=== PATIENT | female | born 1965 | race Caucasian/White ===

== ENCOUNTER 2021-10-02 16:55 | Observation (INO) ==
[2021-10-02] MEDS ORDERED: 0.9 % Sodium Chloride 1,000 ML IV ONE (22:22)
[2021-10-02 23:04] LABS: Basophils % 0.5 %; Eosinophils % 0.5 %; Hematocrit 41.2 % (35.3-44.9); Immature Granulocytes % 0.1 % (0-4); Lymphocytes # 1.7 K/mcL (0.6-4.6); Lymphocytes % 22.7 %; Mean Corpuscular Hemoglobin 30.8 pg (28.0-33.3); Mean Corpuscular Volume 90.7 fL (83.0-100.0); Mean Platelet Volume 9.7 fL (9.4-12.4); Monocytes # 0.8 K/mcL (0.0-1.3); Monocytes % 11.5 %; Neutrophils # 4.7 K/mcL (1.6-8.9); Platelet Count 296 K/mcL (140-400); Red Blood Count 4.54 M/mcL (3.82-4.97); Red Cell Distribution Width 13.4 % (11.5-14.5); Segmented Neutrophils % 64.7 %; White Blood Count 7.3 K/mcL (4.3-11.1)
[2021-10-02 23:16] LABS: BUN/Creatinine Ratio 14 (6-26); Blood Urea Nitrogen 14 mg/dL (6-20); Calcium 8.8 mg/dL (8.6-10.3); Carbon Dioxide 25 mEq/L (23-29); Chloride 97 mEq/L (98-107); Glucose 77 mg/dL (70-105); Osmolality,Calculated 277 (280-300); Potassium 2.6 mEq/L (3.5-5.1); Sodium 134 mEq/L (136-145); eGFR For African Americans > 60 (> 60); eGFR For Non-African Americans 56 (> 60)
[2021-10-02] MEDS ORDERED: Potassium Chloride Elixir 20 MEQ/15 ML UDC PO ONE (23:20)
[2021-10-03] MEDS ORDERED: Ondansetron 4 MG/2 ML VIAL IVP ONE (00:04)
[2021-10-03 00:59] LABS: Magnesium 1.1 mg/dL (1.6-2.6)
[2021-10-03 01:04] LABS: Influenza A PCR Negative (Negative); Influenza B PCR Negative (Negative); Resp. Syncytial Virus PCR Negative (Negative)
[2021-10-03 01:15] LABS: SARS-CoV-2 by PCR (In House) Positive (Negative)
[2021-10-03] MEDS ORDERED: Ibuprofen 400 MG TABLET PO PRN (01:39)
[2021-10-03] MEDS ORDERED: Naloxone 0.4 MG/ML INJ IVP PRN (01:39)
[2021-10-03] MEDS ORDERED: Melatonin 3 MG TABLET PO PRN (01:39)
[2021-10-03] MEDS ORDERED: *HR* Promethazine 25 MG/ML VIAL IM PRN (01:39)
[2021-10-03] MEDS ORDERED: Ondansetron ODT 4 MG TAB.RAPDIS SL PRN (01:39)
[2021-10-03] MEDS ORDERED: 0.9 % Sodium Chloride 1,000 ML IVC SCH (02:15)
[2021-10-03 04:08] LABS: Alanine Aminotransferase 10 Units/L (7-52); Albumin 3.7 g/dL (3.5-5.7); Albumin/Globulin Ratio 1.4 (1.1-2.2); Alkaline Phosphatase 75 Units/L (34-104); Aspartate Amino Transferase 20 Units/L (13-39); BUN/Creatinine Ratio 16 (6-26); Bilirubin,Total 0.3 mg/dL (0.3-1.0); Blood Urea Nitrogen 14 mg/dL (6-20); Calcium 8.2 mg/dL (8.6-10.3); Carbon Dioxide 28 mEq/L (23-29); Chloride 99 mEq/L (98-107); Globulin 2.7 g/dL (2.4-3.5); Glucose 88 mg/dL (70-105); Magnesium 1.1 mg/dL (1.6-2.6); Osmolality,Calculated 278 (280-300); Potassium 2.6 mEq/L (3.5-5.1); Sodium 134 mEq/L (136-145); Total Protein 6.4 g/dL (6.4-8.9); eGFR For African Americans > 60 (> 60); eGFR For Non-African Americans > 60 (> 60)
[2021-10-03 04:14] LABS: Basophils % 0.5 %; Eosinophils % 0.7 %; Hematocrit 37.7 % (35.3-44.9); Hemoglobin 12.6 g/dL (11.5-15.4); Immature Granulocytes % 0.2 % (0-4); Lymphocytes # 1.8 K/mcL (0.6-4.6); Lymphocytes % 29.2 %; Mean Corpuscular HGB Conc 33.4 g/dL (31.6-35.5); Mean Corpuscular Hemoglobin 30.8 pg (28.0-33.3); Mean Corpuscular Volume 92.2 fL (83.0-100.0); Monocytes # 0.8 K/mcL (0.0-1.3); Monocytes % 12.7 %; Neutrophils # 3.5 K/mcL (1.6-8.9); Platelet Count 274 K/mcL (140-400); Red Blood Count 4.09 M/mcL (3.82-4.97); Red Cell Distribution Width 13.4 % (11.5-14.5); Segmented Neutrophils % 56.7 %; White Blood Count 6.1 K/mcL (4.3-11.1)
[2021-10-03] MEDS ORDERED: Potassium Chloride Elixir 20 MEQ/15 ML UDC PO ONE (08:14)
[2021-10-03] MEDS ORDERED: Potassium Effervescent 25 MEQ TABLET.EFF PO ONE (08:34)
[2021-10-03] MEDS ORDERED: Ringers Solution, Lactated 1,000 ML IVC SCH (08:45)
[2021-10-03] MEDS ORDERED: Nicotine 14 MG PATCH.TD24 TD SCH (09:00)
[2021-10-03] MEDS ORDERED: Magnesium Sulfate 2 GM/100 ML PIGGYBACK IVPB ONE (10:04)
[2021-10-03] MEDS ORDERED: *HR* OxyCODONE Immed Rel 5 MG TABLET PO PRN (11:47)
[2021-10-03] MEDS ORDERED: BuPROPion XL (24 HR) 150 MG TABLET PO SCH (12:00)
[2021-10-03] MEDS ORDERED: Aspirin 81 MG TAB.CHEW PO SCH (12:00)
[2021-10-03] MEDS: Isosorbide MONOnitrate (24 HR) 30 MG TAB.ER.24H PO SCH ×2 (12:21→12:35)
[2021-10-03 18:54] VITALS: O2SAT 94
[2021-10-03 19:15] VITALS: BP 98/61; PULSE 76; TEMP 98.5
[2021-10-03] MEDS ORDERED: Melatonin 3 MG TABLET PO SCH (21:00)
[2021-10-03] MEDS ORDERED: Zonisamide 100 MG CAPSULE PO SCH (21:00)
[2021-10-03] MEDS ORDERED: Ranolazine 500 MG TAB.ER.12H PO SCH (21:00)
== END 2021-10-03 20:11 | disposition left against medical advice (07) ==
LOC: EMEROOARM 16:55 → 3BNU 16:55 → SUATTDRO 10-03 01:40 → 3BNU 10-03 01:53
PROVIDERS: ADMIT Internal Medicine; ATTEND Internal Medicine